=== PATIENT | female | born 1995 | race African-American/Black ===

== ENCOUNTER 2017-07-31 02:21 | Emergency (ER) | payer OTHER ==
[~2017-07-31] VITALS: Ht 160 cm; Wt 54.5 kg
[2017-07-31 02:23] VITALS: BP 122/58; PULSE 67; RESP 16; TEMP 98; O2SAT 97
[2017-07-31] MEDS ORDERED: IBUP1TAB7 PO (02:39)
[2017-07-31] MEDS ORDERED: CYCL10TA PO (02:39)
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
[2017-07-31] MEDS ORDERED: CYCLOBENZAPRINE HCL 10 MG TAB PO ONE (02:45)
[2017-07-31] MEDS ORDERED: IBUPROFEN 800 MG TAB PO ONE (02:45)
== END 2017-07-31 02:41 | disposition home or self-care (01) ==
LOC: NEPD 02:21
DX: S39.012A Strain of muscle, fascia and tendon of lower back, initial encounter (principal); V49.59XA Passenger injured in collision with other motor vehicles in traffic accident, initial encounter; Y92.414 Local residential or business street as the place of occurrence of the external cause
CPT/HCPCS: 99283